=== PATIENT | female | born 1990 | race Caucasian/White ===

== ENCOUNTER 2017-08-04 22:56 | Emergency (ER) | payer MEDICARE, MEDICAID, SELFPAY ==
[2017-08-04 22:57] VITALS: BP 135/79; PULSE 74; RESP 13; TEMP 36.8; O2SAT 99; BMI 39.9
--- NOTE | 2017-08-04 23:09 | ED.VISSUMM ---
- ER Visit Summary Date of Service: 08/04/17 Chief Complaint: [] Complaining of anxiety and panic attack History of Present Illness: The patient is a 26 F patient stated she has a fear of storms and had a panic attack at home tonight will still remain. She does take a benzo. Did help. She came in by squad for further evaluation. Currently she has no complaints. Physical Examination: [] Vital signs reviewed General: Well-nourished well-developed Head: Normocephalic atraumatic Eyes: Pupils equal round and reactive to light extraocular movements intact ENT: TMs clear no hemotympanum no trauma Neck: Nontender full range of motion Cardiovascular: Regular rate rhythm no murmurs normal S1-S2 Respiratory: No distress clear to auscultation bilaterally chest nontender Abdomen: Soft nontender nondistended normal bowel sounds no masses Back: Nontender no CVA tenderness Extremities: Nontender active range of motion ?4 extremities no trauma Skin: Normal color no trauma Neuro alert oriented cranial nerves II through XII intact normal strength sensation reflexes Test Results: [] Emergency Department Course and Treatment: [] Monitored in the department. Will be discharged once she further calms down Treatment Plan: [] Disposition: [] Impression: [] Panic attack This note was generated with [employer] dictation software. It may contain incorrect words, spelling, and punctuation that were not noted in review of the chart prior to signing ED Disposition - Plan for ED Patient: Chief Complaint: Anxiety Referrals: Lourdes Diane NP-C [Primary Care Provider] -
--- NOTE | 2017-08-04 23:10 | ED.DEP ---
ED Disposition - Plan for ED Patient: Disposition: Home or Assisted Living Chief Complaint: Anxiety Instructions: ED Panic Attack Referrals: Lourdes Diane NP-C [Primary Care Provider] -
--- NOTE | 2017-08-04 23:45 | NURSING ---
DR. WHEELER MADE AWARE OF PATIENT STATING THAT HER HAND FELT NUMB. HE DIDN'T ORDER ANY OTHER INTERVENTIONS AT THIS TIME.
[2017-08-05 00:53] VITALS: BP 125/74; PULSE 75; RESP 18; O2SAT 96
== END 2017-08-05 01:44 | disposition home or self-care (01) ==
LOC: ED 23:18
PROVIDERS: Emergency Provider Emergency Medicine
DX: F41.0 Panic disorder [episodic paroxysmal anxiety] (principal); F41.9 Anxiety disorder, unspecified; F32.9 Major depressive disorder, single episode, unspecified; Z79.899 Other long term (current) drug therapy
CPT/HCPCS: 99284

== ENCOUNTER 2020-02-19 12:22 | Emergency (ER) | payer MEDICARE, MEDICAID, SELFPAY ==
[2020-02-19 12:23] VITALS: BP 161/92; PULSE 98; RESP 16; TEMP 36.3; O2SAT 97; BMI 44.9
[2020-02-19] MEDS: Ondansetron 4 MG/2 ML Vial IV (13:25)
[2020-02-19] MEDS: 0.9% Normal Saline 1,000 ML 1000 ML IV (13:25)
[2020-02-19 13:44] LABS: Absolute Lymphocyte Count 2.01 X10^3/uL (0.83-4.51); Absolute Neutrophil Count 5.2 X10^3/uL (2.0-7.7); Basophil# 0.04 X10^3/uL; Basophil% 0.5 % (0-1); Eosinophil# 0.24 X10^3/uL; Hematocrit 38.7 % (37-47); Lymphocyte # 2.01 X10^3/ul (4.0); Lymphocyte % 24.9 % (19-41); Mean Corp Hgb Conc 33.6 g/dL (32-36); Mean Corpuscular Volume 83.4 fL (81-99); Mean Platelet Vol. 9.5 fl (6.2-12.0); Monocyte# 0.54 X10^3/uL; Monocyte% 6.7 % (0-10); NRBC Flagged by Analyzer 0 % (0-5); Neutrophil # 5.21 X10^3/uL (2.7-7.7); Neutrophil % 64.4 % (47-70); Platelet Count 341 K/mm3 (150-450); RBC Distribution Width CV 12.9 % (11.6-14.6); Red Blood Count 4.64 M/mm3 (4.2-5.4); White Blood Count 8.1 K/mm3 (4.4-11.0)
[2020-02-19 14:00] LABS: ALB/GLOB Ratio 0.8 RATIO (0.9-2.4); AST(SGOT) 14 U/L (15-37); Alanine Aminotransfer ALT/SGPT 24 U/L (13-56); Albumin, Serum 3.5 g/dL (3.2-5.0); Alkaline Phosphatase 109 U/L (45-117); Anion Gap 4 (5-15); BUN 13 mg/dL (7-18); BUN/Creat Ratio 16.9 RATIO (10-20); Calcium,Total 8.7 mg/dL (8.5-10.1); Chloride 108 mmol/L (98-107); Creatinine, Serum 0.77 mg/dL (0.55-1.02); EST Glomerular Filtration Rate 94 mL/min (>60); Est Glom Filt Rate - Afr Amer 114 mL/min (>60); Estimated Creatinine Clearance 96.13 ml/min; Globulin 4.2 g/dL (2.2-4.2); Glucose 101 mg/dL (74-106); Potassium 3.5 mmol/L (3.5-5.1); Protein, Total 7.7 g/dL (6.4-8.2); Sodium Level 139 mmol/L (136-145)
[2020-02-19 14:22] LABS: Internal QC Validated? YES +Cl - CLEAR BKGD; Pregnancy, Serum, hCG Quali. NEGATIVE Negative
--- NOTE | 2020-02-19 14:47 | ED.DCSUM_ITS ---
- ER Visit Summary Date of Service: 02/19/20 Chief Complaint: Nausea, vomiting History of Present Illness: The patient is a 29 F presenting with nausea, vomiting. She states this has been ongoing since Friday. She states she has not actually had any vomiting today. She complains of upper abdominal pain. She denies diarrhea or constipation. She took a home test yesterday which was negative. She denies fever. Denies other complaints. Physical Examination: Vitals are stable. Patient is afebrile. Alert no acute distress. HEENT exam is unremarkable. Neck is supple. Lungs are clear and equal bilaterally. Heart is regular rate and rhythm. Abdomen is soft mild left upper quadrant tenderness with no guarding or rebound Extremities are unremarkable. Skin is warm and dry. No focal neurologic deficit. Remainder of exam is unremarkable. Emergency Department Course and Treatment: Patient was given IV fluids, Zofran. CBC, chemistries unremarkable. hCG negative. On reevaluation patient is resting comfortably. She is given prescription for Zofran. Advised to follow- up with her primary care physician. Advised return to ED for worsening complaints. Disposition: Discharge home Impression: Vomiting, improved This note was generated with [employer] dictation software. It may contain incorrect words, spelling, and punctuation that were not noted in review of the chart marie or to signing ED Disposition - Plan for ED Patient: Instructions: ED Vomiting (Adult) Prescriptions: Ondansetron [Zofran Odt] 4 mg PO Q8H PRN PRN #10 tab PRN Reason: Nausea Prescription Printed Referrals: Carlos Leon MD [Primary Care Provider] -
--- NOTE | 2020-02-19 14:59 | ED.DEP ---
ED Disposition - Plan for ED Patient: Instructions: ED Vomiting (Adult) Prescriptions: Ondansetron [Zofran Odt] 4 mg PO Q8H PRN PRN #10 tab PRN Reason: Nausea Prescription Printed Referrals: Carlos Leon MD [Primary Care Provider] -
[2020-02-19 15:05] VITALS: BP 160/89; PULSE 88; RESP 16; O2SAT 99
== END 2020-02-19 15:17 | disposition home or self-care (01) ==
LOC: ED 13:19
PROVIDERS: Emergency Provider Emergency Medicine; PCP Family Medicine
DX: R11.2 Nausea with vomiting, unspecified (principal); R10.10 Upper abdominal pain, unspecified
CPT/HCPCS: 80053; 84703; 85025; 96361; 96374; 99283; J7030; A4216; J2405

== ENCOUNTER → 2021-01-24 11:16 | Outpatient (CLI) | payer MEDICARE, MEDICAID, SELFPAY ==
[2021-01-24 12:05] LABS: Absolute Lymphocyte Count 1.91 X10^3/uL (0.83-4.51); Absolute Neutrophil Count 4.1 X10^3/uL (2.0-7.7); Basophil# 0.07 X10^3/uL; Eosinophil# 0.55 X10^3/uL; Eosinophils% 7.6 % (0-5); Hematocrit 38.6 % (37-47); Hemoglobin 13.2 g/dL (12.0-15.0); Lymphocyte # 1.91 X10^3/ul (0.83-4.51); Lymphocyte % 26.5 % (19-41); Mean Corp Hgb Conc 34.2 g/dL (32-36); Mean Corpuscular Hgb 27.7 pg (27.0-32.0); Mean Corpuscular Volume 81.1 fL (81-99); Mean Platelet Vol. 9.5 fl (6.2-12.0); Monocyte# 0.58 X10^3/uL; NRBC Flagged by Analyzer 0 % (0-5); Neutrophil # 4.09 X10^3/uL (2.7-7.7); Neutrophil % 56.6 % (47-70); Platelet Count 329 K/mm3 (150-450); RBC Distribution Width CV 13.3 % (11.6-14.6); RBC Distribution Width SD 39.2 fl (35.1-43.9); Red Blood Count 4.76 M/mm3 (4.2-5.4); White Blood Count 7.2 K/mm3 (4.4-11.0)
[2021-01-24 12:13] LABS: Hemoglobin A1c 5.1 % (3.8-5.6)
[2021-01-24 12:33] LABS: ALB/GLOB Ratio 0.8 RATIO (0.9-2.4); AST(SGOT) 18 U/L (15-37); Alanine Aminotransfer ALT/SGPT 22 U/L (13-56); Albumin, Serum 3.5 g/dL (3.2-5.0); Alkaline Phosphatase 92 U/L (45-117); Anion Gap 5 (5-15); BUN 10 mg/dL (7-18); BUN/Creat Ratio 13.5 RATIO (10-20); Chloride 105 mmol/L (98-107); Cholesterol 151 mg/dL (200); Creatinine, Serum 0.74 mg/dL (0.55-1.02); EST Glomerular Filtration Rate 97 mL/min (>60); Est Glom Filt Rate - Afr Amer 118 mL/min (>60); Globulin 4.4 g/dL (2.2-4.2); Glucose 96 mg/dL (74-106); High Density Lipoprotein 41 mg/dL; Protein, Total 7.9 g/dL (6.4-8.2); Sodium Level 137 mmol/L (136-145); Thyroid Stim Hormone (TSH) 1.61 uIU/mL (0.358-3.74); Triglycerides 142 mg/dL; Very Low Density Lipoprotein 28 mg/dL (5-40)
== END ==
PROVIDERS: Visit Provider Nurse Practitioner Adult Health
DX: F31.81 Bipolar II disorder (principal); F41.1 Generalized anxiety disorder; E66.9 Obesity, unspecified; Z13.220 Encounter for screening for lipoid disorders
CPT/HCPCS: 36415; 80053; 80061; 83036; 84443; 85025

== ENCOUNTER 2021-04-25 09:52 | Outpatient (CLI) | payer MEDICARE, SELFPAY ==
[2021-04-30 11:07] LABS: Alternaria tenuis <0.10 kU/L (Class 0); Ash, White <0.10 kU/L (Class 0); Aspergillus fumigatus <0.10 kU/L (Class 0); Bermuda Grass <0.10 kU/L (Class 0); Birch <0.10 kU/L (Class 0); Black Walnut <0.10 kU/L (Class 0); Cat Hair / Dander,Stand <0.10 kU/L (Class 0); Cedar, Mountain <0.10 kU/L (Class 0); Cladosporium herbarum <0.10 kU/L (Class 0); Cockroach, American <0.10 kU/L (Class 0); Cottonwood <0.10 kU/L (Class 0); D farinae Mite <0.10 kU/L (Class 0); D pteronyssinus <0.10 kU/L (Class 0); Dog Epithelia <0.10 kU/L (Class 0); Elm, American White <0.10 kU/L (Class 0); Immunoglobulin E 15 IU/mL (6-495); Maple/Box Elder <0.10 kU/L (Class 0); Mulberry, White <0.10 kU/L (Class 0); Oak, White <0.10 kU/L (Class 0); Pecan <0.10 kU/L (Class 0); Penicillium Notatum <0.10 kU/L (Class 0); Pigweed, Rough <0.10 kU/L (Class 0); Ragweed, Short/Common <0.10 kU/L (Class 0); Russian Thistle <0.10 kU/L (Class 0); Sheep Sorrel <0.10 kU/L (Class 0); Sycamore, American <0.10 kU/L (Class 0); Timothy Grass <0.10 kU/L (Class 0)
[2021-04-30 16:57] LABS: Mouse Urine <0.10 kU/L (Class 0)
== END 2021-04-25 23:59 | disposition home or self-care (01) ==
DX: J30.9 Allergic rhinitis, unspecified (principal)
CPT/HCPCS: 36415; 82785; 86003

== ENCOUNTER → 2024-04-22 | Outpatient (CLI) | payer MEDICARE, MEDICAID, SELFPAY ==
[2024-04-22 12:47] LABS: Absolute Lymphocyte Count 1.51 X10^3/uL (0.83-4.51); Absolute Neutrophil Count 5.4 X10^3/uL (2.0-7.7); Basophil# 0.04 X10^3/uL; Basophil% 0.5 % (0-1); Eosinophil# 0.47 X10^3/uL; Eosinophils% 5.9 % (0-5); Hematocrit 36.6 % (37-47); Hemoglobin 12.2 g/dL (12.0-15.0); Lymphocyte # 1.51 X10^3/ul (0.83-4.51); Lymphocyte % 18.9 % (19-41); Mean Corp Hgb Conc 33.3 g/dL (32-36); Mean Corpuscular Hgb 27.1 pg (27.0-32.0); Mean Corpuscular Volume 81.2 fL (81-99); Mean Platelet Vol. 9.6 fl (6.2-12.0); Monocyte# 0.55 X10^3/uL; Monocyte% 6.9 % (0-10); NRBC Flagged by Analyzer 0 % (0-5); Neutrophil % 67.4 % (47-70); Platelet Count 330 K/mm3 (150-450); RBC Distribution Width CV 13.2 % (11.6-14.6); RBC Distribution Width SD 38.9 fl (35.1-43.9); Red Blood Count 4.51 M/mm3 (4.2-5.4)
[2024-04-22 13:16] LABS: ALB/GLOB Ratio 0.9 RATIO (0.9-2.4); AST(SGOT) 15 U/L (15-37); Alanine Aminotransfer ALT/SGPT 17 U/L (13-56); Albumin, Serum 3.5 g/dL (3.2-5.0); Alkaline Phosphatase 89 U/L (45-117); Anion Gap 5 (5-15); BUN 15 mg/dL (7-18); BUN/Creat Ratio 23.7 RATIO (10-20); Chloride 104 mmol/L (98-107); Creatinine, Serum 0.63 mg/dL (0.55-1.02); EST Glomerular Filtration Rate 114 mL/min (>60); Est Glom Filt Rate - Afr Amer 138 mL/min (>60); Globulin 3.9 g/dL (2.2-4.2); Glucose 97 mg/dL (74-106); Potassium 3.9 mmol/L (3.5-5.1); Protein, Total 7.4 g/dL (6.4-8.2); Sodium Level 137 mmol/L (136-145)
[2024-04-22 15:18] LABS: Vitamin B12 559 pg/mL (211-911)
== END | disposition home or self-care (01) ==
LOC: VSLAB 11:44
PROVIDERS: PCP Family Medicine; Visit Provider Family Medicine
DX: R41.82 Altered mental status, unspecified (principal)
CPT/HCPCS: 36415; 80053; 82607; 84443; 85025

== ENCOUNTER → 2024-05-13 | Outpatient (CLI) | payer MEDICARE, MEDICAID, SELFPAY ==
[2024-05-13 18:21] LABS: Magnesium 2.4 mg/dL (1.5-2.2)
== END | disposition home or self-care (01) ==
LOC: MTLAB 16:28
PROVIDERS: PCP Family Medicine
DX: G40.909 Epilepsy, unspecified, not intractable, without status epilepticus (principal)
CPT/HCPCS: 36415; 83735

== ENCOUNTER → 2024-06-15 | Outpatient (CLI) | payer MEDICARE, MEDICAID, SELFPAY ==
--- NOTE | 2024-06-15 16:00 | MRI_ITS ---
PROCEDURE: BRAIN W/WO CONTRAST 06/15/2024 REASON FOR EXAM: ALTERED MENTAL STATUS TECHNIQUE: Routine brain MRI without and with intravenous contrast. CONTRAST: 24 cc Clariscan IV COMPARISON: None available FINDINGS: No acute/subacute appearing infarct, mass effect or evidence of intracranial hemorrhage. No abnormal parenchymal signal intensity. CSF spaces appear within limits. Major intracranial flow voids appear within limits. Internal auditory canals appear within limits. The optic chiasm, suprasellar cistern and pituitary appear within limits as imaged. The orbits and mastoids appear within limits. Mild bilateral inferior maxillary sinus mucoperiosteal thickening. Diffusely asymmetrically more prominent right nasal turbinates. No abnormal enhancement identified. MRI/Brain W/WO Contrast IMPRESSION: MRI of the brain without and with contrast appears within limits. Maxillary sinus disease and prominence of the right nasal turbinates as above. Reading Location: [id number]
== END | disposition home or self-care (01) ==
LOC: MRI 15:32
PROVIDERS: PCP Family Medicine; Referring Provider Family Medicine; Visit Provider Family Medicine
DX: R41.82 Altered mental status, unspecified (principal)
CPT/HCPCS: 70553; A9575

== ENCOUNTER → 2024-06-17 | Outpatient (CLI) | payer MEDICARE, MEDICAID, SELFPAY | END | disposition home or self-care (01) | LOC: PSN 08:13 | PROVIDERS: PCP Family Medicine | DX: G40.909 Epilepsy, unspecified, not intractable, without status epilepticus (principal) | CPT/HCPCS: 95819 ==

== ENCOUNTER 2024-07-08 15:30 | Outpatient (RCR) | payer MEDICARE, MEDICAID, SELFPAY ==
--- NOTE | 2024-05-12 14:06 | HP.PTEVAL_ITS ---
Patient's Visit Information Visit Information Visit Information: ZONIA JAMES is a 33 year old F referred to Physical Therapy by LENKA [place] with a diagnosis of STRAIN OF MUSCLE /TENDON OF THE RTC ,LEFT SHOULDER. Date of Evaluation: 05/12/24 Physical Therapist: Arron Glass, PT, Cert MDT, OCS Visit Plan Frequency: 2-3x /Week Duration: 4-6 Weeks Plan: PT INTERVENTIONS ROM EX'S ,RTC/SCAPULAR STRENGTHENING ,POSTURAL EX'S,ACTIVITY MODIFICATION AND MODIFICATION Subjective Subjective: This 33 y/o female presents to physical therapy with left shoulder pain. Patient has left shoulder pain for many years. Patient pain was insidious onset with injury. Patient seen [facility] LENKA recommended PT had x-rays -. Want to do MRI. No medication. No injection. Patient has left restriction 5 # at work . Patient pain left shoulder to lateral deltoid. Patient pain at night sleeping on side . Aggravating factors worse with activities above 90 degrees ,lifting affects general activities and housework. Alleviating factors rest. Patient pain ache and burning. Patient is off working and RTD Friday. Patient condition affects QOL and function/job demands. Patient goals to decrease pain. SOCIAL: VOCATION: retail Pain Left Shoulder: Pain Intensity (Out of 10): 8 Pain Intensity Range: 10 Comment: activity Objective Objective: POSTURE: mild forward posture PALPATION: tender anterior shoulder NEURO: denies paresthesia/tingling AROM: shoulder flexion 100 degrees pain , abduction 100 degrees scaption pain ,ER shoulder 90 L5 PROM: shoulder flexion 150 degrees ,abduction 150 degrees MMT: infraspinatus 12.3 ,subscapularis 15.2 , supraspinatus 11.8 ,deltoid 12.8 SCAPULAR HUMERAL FUNCTION: , <1:1 CAPSULAR FUNCTION: WFL Special Tests L Shoulder Drop Sign - IS Test: Negative L Shoulder Empty Can - SS: Positive L Shoulder Belly Press - SupScap: Negative L Shoulder Neer - Impingement: Positive L Shoulder Morales Chad - Impingement: Positive L Shoulder Speeds Test - Labrum/Biceps: Negative Balance/Special Test Scores Quick DASH Score: 47.7250 Goals Goal 1:: Patient to be I with HEP for shoulder Goal Time Frame: 4-6 Weeks Goal 2:: Patient to improve quick dash by 5 points to improve QOL and function Goal Time Frame: 4-6 Weeks Goal 3:: Patient to improve AROM shoulder flexion and abduction 150 to reach in a cupboard. Goal Time Frame: 4-6 Weeks Goal 4:: Patient to improve peak force RTC/deltoid by 5 # to improve function Goal Time Frame: 4-6 Weeks Goal 5:: Patient to demonstrate 40 % improvement with less pain and improved function Goal Time Frame: 4-6 Weeks Rehabilitation Potential Physical Therapy Diagnosis: This patient has RTC weakness and pain with decrease ROM ,weakness ,impairs ADL's and function thus benefit from skilled PT Rehabilitation Potential: Good Anticipated Interventions Patient/Client Instruction: Educate patient on: Condition and Plan of Care For the Purpose of:: To decrease pain, To increase ROM, To improve muscle performance and motor function, To increase tolerance to activity/condition/position, To improve ability of physical actions for abdiel e/community/work/leisure, To improve health of tissue, To decrease soft tissue restriction, To increase flexibility/ROM, To reduce risk of recurrence, To prevent re-injury and To improve tolerance to ADL's Therapeutic Exercise to Include: Strength training, Postural training, Flexibilty training, Passive ROM, Active ROM and Scapular Strength/Stabilization Comment: RTC For the Purpose of:: To decrease pain, To increase ROM, To improve muscle performance and motor function, To improve ability to perform ADL's, To increase tolerance to activity/condition/position, To improve ability of physical actions for home/community/work/leisure, To improve health of tissue, To decrease soft tissue restriction, To increase flexibility/ROM, To reduce risk of recurrence, To prevent re-injury and To improve tolerance to ADL's TENS: Yes IF ES: Yes Cryotherapy (ice pack, ice massage): Yes Thermo therapy (hot pack): Yes Ultrasound (thermal/non thermal): Yes For the Purpose of:: To decrease pain, To increase ROM, To improve health of tissue and To decrease soft tissue restriction Text: Thank you for the opportunity to evaluate your patient. For Medicare and Medicare HMO plans, please review the plan of care and approve it. It will need to be FAXED BACK to us at [phone] for Medicare purposes. For Medicare only, by signing this I certify the plan of care. Please let me know if there are questions or concerns regarding this plan of care. Physician Signature: Dat e:
--- NOTE | 2024-06-08 15:38 | HP.PTREVAL ---
Re-Evaluation Intro: LENKA [place], It has been my pleasure to treat ZONIA JAMES over the last 8 visits for STRAIN OF MUSCLE /TENDON OF THE RTC ,LEFT SHOULDER. Please see the progress note below for an update on the physical therapy plan of care! Subjective Subjective: Feels like shoulder nor get better. Objective Objective/Function: Patient will benefit from skilled PT due to progressing with ROM and strength with left shoulder PALAPTION: tender UT/levator CERVICAL ROM: flexion min loss pain,extension min loss pain ,lateral flexion/rotation min loss ,retraction min loss POSTURE: mild forward posture PALPATION: tender anterior shoulder NEURO: denies paresthesia/tingling AROM: shoulder flexion 130 degrees pain , abduction 120 degrees scaption pain ,ER shoulder 90 L5 PROM: shoulder flexion 150 degrees ,abduction 150 degrees MMT: infraspinatus 14.8 ,subscapularis 15.2 , supraspinatus 12.8 ,deltoid 17.8 SCAPULAR HUMERAL FUNCTION: , <1:1 CAPSULAR FUNCTION: WFL Plan Plan Plan: ADD MECKENZIE EXERCISES CERVICAL AND IS NEED PT INTERVENTIONS ROM EX'S ,RTC/SCAPULAR STRENGTHENING ,POSTURAL EX'S,ACTIVITY MODIFICATION AND MODLITIES Balance/Gait/Functional tests Balance/Special Test Scores Quick DASH Score: 47.7250 Goals Goals Goal 1:: Patient to be I with HEP for shoulder Goal Time Frame: 4-6 Weeks Goal Progress: Progressing Goal 2:: Patient to improve quick dash by 5 points to improve QOL and function Goal Time Frame: 4-6 Weeks Goal Progress: Progressing Goal 3:: Patient to improve AROM shoulder flexion and abduction 150 to reach in a cupboard. Goal Time Frame: 4-6 Weeks Goal Progress: Progressing Goal 4:: Patient to improve peak force RTC/deltoid by 5 # to improve function( NEW GOAL) Goal Time Frame: 4-6 Weeks Goal 5:: Patient to demonstrate 40 % improvement with less pain and improved function Goal Time Frame: 4-6 Weeks Goal Progress: Progressing Goal 6:: Patient to improve cervical ROM for function of recovery for ADLS with min pain( new gaol) Goal Progress: Progressing Anticipated Interventions Anticipated Interventions Patient/Client Instruction: Educate patient on: Condition and Plan of Care For the Purpose of:: To decrease pain, To increase ROM, To improve muscle performance and motor function, To increase tolerance to activity/condition/position, To improve ability of physical actions for home/community/work/leisure, To improve health of tissue, To decrease soft tissue restriction, To increase flexibility/ROM, To reduce risk of recurrence, To prevent re-injury and To improve tolerance to ADL's Therapeutic Exercise to Include: Strength training, Postural training, Flexibilty training, Passive ROM, Active ROM and Scapular Strength/Stabilization Comment: RTC For the Purpose of:: To decrease pain, To increase ROM, To improve muscle performance and motor function, To improve ability to perform ADL's, To increase tolerance to activity/condition/position, To improve ability of physical actions for home/community/work/leisure, To improve health of tissue, To decrease soft tissue restriction, To increase flexibility/ROM, To reduce risk of recurrence, To prevent re-injury and To improve tolerance to ADL's TENS: Yes IF ES: Yes Cryotherapy (ice pack, ice massage): Yes Thermo therapy (hot pack): Yes Ultrasound (thermal/non thermal): Yes For the Purpose of:: To decrease pain, To increase ROM, To improve health of tissue and To decrease soft tissue restriction Re-Evaluation Ending Re-evaluation ending: Please do not hesitate to contact me at [phone] by phone or if you have questions or concerns regarding this new plan of care! Sincerely, Arron Glass PT, Cert MDT, OCS
--- NOTE | 2024-07-08 15:49 | HP.PTDCSUM ---
Discharge Summary D/C summary: It has been my pleasure to treat ZONIA JAMES referred by LENKA [place], with the diagnosis of STRAIN OF MUSCLE /TENDON OF THE RTC ,LEFT SHOULDER for a total of 12 visit(s). Discharge Date: 07/08/24 Please see the following information for a summary of their discharge status. Subjective Subjective: Patient reports pain about same Lifting and work demands /housework make symptoms worse Pain Left Shoulder: Pain Intensity (Out of 10): 2 neck: Pain Intensity (Out of 10): 5 Overall Improvement % Improvement: 40 Objective Objective/Function: ALAPTION: tender UT/levator CERVICAL ROM: flexion WFL pain,extension WFL ,lateral flexion MIN rotation WFL ,retraction min loss POSTURE: mild forward posture PALPATION: tender anterior shoulder NEURO: denies paresthesia/tingling AROM: shoulder flexion 140 degrees pain , abduction 130 degrees scaption pain ,ER shoulder 90 L5 PROM: shoulder flexion 150 degrees ,abduction 150 degrees MMT: infraspinatus 170 ,subscapularis 18.5 , supraspinatus 15.7 ,deltoid 17.8 SCAPULAR HUMERAL FUNCTION: , <1:1 CAPSULAR FUNCTION: WFL Goals Goal 1:: Patient to be I with HEP for shoulder Goal Progress: Progressing Goal 2:: Patient to improve quick dash by 5 points to improve QOL and function Goal Progress: Progressing Goal 3:: Patient to improve AROM shoulder flexion and abduction 150 to reach in a cupboard. Goal Progress: Progressing Goal 4:: Patient to improve peak force RTC/deltoid by 5 # to improve function( NEW GOAL) Goal 5:: Patient to demonstrate 40 % improvement with less pain and improved function Goal Progress: Progressing Goal 6:: Patient to improve cervical ROM for function of recovery for ADLS with min pain( new gaol) Goal Progress: Progressing Plan Plan: RTD D/C Information Discharge Comments: RTD AND CONT HEP d/c sentence: If there are questions or concerns regarding this patient's physical therapy, please feel free to call me at [phone]. Thank you for the referral of this patient. Sincerely, Arron Glass, PT, Cert MDT, OCS Balance/Gait/Functional tests Balance/Special Test Scores Quick DASH Score: 47.7250 Improvement % Improvement: 40
== END 2024-07-08 19:00 | disposition home or self-care (01) ==
LOC: PT 15:30
PROVIDERS: PCP Family Medicine
DX: S46.012D Strain of muscle(s) and tendon(s) of the rotator cuff of left shoulder, subsequent encounter (principal); M50.23 Other cervical disc displacement, cervicothoracic region; M54.12 Radiculopathy, cervical region
CPT/HCPCS: 97110; 97162; 97530

== ENCOUNTER → 2024-08-24 | Outpatient (CLI) | payer MEDICARE, MEDICAID, SELFPAY ==
[2024-08-24 12:20] LABS: Absolute Neutrophil Count 5.4 X10^3/uL (2.0-7.7); Basophil# 0.04 X10^3/uL; Basophil% 0.5 % (0-1); Eosinophil# 0.32 X10^3/uL; Eosinophils% 3.9 % (0-5); Hematocrit 36.1 % (37-47); Hemoglobin 12.2 g/dL (12.0-15.0); Lymphocyte % 22.1 % (19-41); Mean Corp Hgb Conc 33.8 g/dL (32-36); Mean Corpuscular Hgb 27.7 pg (27.0-32.0); Mean Corpuscular Volume 81.9 fL (81-99); Mean Platelet Vol. 9.8 fl (6.2-12.0); Monocyte# 0.54 X10^3/uL; Monocyte% 6.6 % (0-10); NRBC Flagged by Analyzer 0 % (0-5); Neutrophil # 5.44 X10^3/uL (2.7-7.7); Neutrophil % 66.7 % (47-70); Platelet Count 325 K/mm3 (150-450); RBC Distribution Width CV 13.2 % (11.6-14.6); RBC Distribution Width SD 39.7 fl (35.1-43.9); Red Blood Count 4.41 M/mm3 (4.2-5.4); White Blood Count 8.2 K/mm3 (4.4-11.0)
[2024-08-24 13:06] LABS: ALB/GLOB Ratio 1.1 RATIO (0.9-2.4); AST(SGOT) 19 U/L (<=31); Alanine Aminotransfer ALT/SGPT 9 U/L (<=34); Albumin, Serum 4.1 g/dL (3.5-5.0); Alkaline Phosphatase 94 U/L (35-104); Anion Gap 12 (5-15); BUN 17 mg/dL (4-19); Calcium,Total 9.3 mg/dL (7.6-11.0); Chloride 105 mmol/L (98-108); Cholesterol 143 mg/dL (<=200); Creatinine, Serum 0.64 mg/dL (0.70-1.20); EST Glomerular Filtration Rate 119 (>60); Globulin 3.6 g/dL (2.2-4.2); Glucose 98 mg/dL (70-99); High Density Lipoprotein 41 mg/dL; Low Density Lipoprotein Calc. 83 mg/dL; Potassium 4.2 mmol/L (3.3-5.1); Protein, Total 7.7 g/dL (5.9-8.4); Sodium Level 137 mmol/L (133-145); Total Bilirubin 0.46 mg/dL (0.00-1.30); Triglycerides 93 mg/dL; Very Low Density Lipoprotein 19 mg/dL (5-40); cholesterol:hdl ratio screen 3.48
== END | disposition home or self-care (01) ==
LOC: VSLAB 09:21
PROVIDERS: PCP Family Medicine; Visit Provider Nurse Practitioner Family
DX: E66.9 Obesity, unspecified (principal); F31.81 Bipolar II disorder
CPT/HCPCS: 36415; 80053; 80061; 84443; 85025

== ENCOUNTER → 2025-02-17 | Outpatient (CLI) | payer MEDICARE, MEDICAID, SELFPAY | END | disposition home or self-care (01) | LOC: SL 13:00 | PROVIDERS: PCP Family Medicine; Visit Provider Nurse Practitioner Family | DX: G47.10 Hypersomnia, unspecified (principal) | CPT/HCPCS: 95806 ==